=== PATIENT | female | born 1955 | race Caucasian/White ===

== ENCOUNTER 2018-12-18 06:14 | Emergency (ER) | payer OTHER ==
[~2018-12-18] VITALS: Ht 154.9 cm; Wt 90.5 kg
[2018-12-18 06:18] VITALS: BP 162/67; RESP 22; Ht 154.9 cm; Wt 90.5 kg
[2018-12-18] MEDS ORDERED: ALBUTEROL 0.083% (NEB) 2.5 MG/3 ML AMP HHN STA (07:05)
[2018-12-18] MEDS ORDERED: IPRATROPIUM (NEB) 0.5 MG/2.5 ML AMP HHN ONE (07:30)
[2018-12-18] MEDS ORDERED: DEXAMETHASONE 10 MG/ML 1 ML INJ IM ONE (07:30)
[2018-12-18] MEDS ORDERED: PRED20TA PO (08:18)
[2018-12-18] MEDS ORDERED: ALBU8.5H8 INH (08:18)
[2018-12-18] MEDS ORDERED: BENZ-6 PO (08:18)
[2018-12-18] MEDS ORDERED: D-ME473S2 PO (08:18)
[2018-12-18 08:36] VITALS: PULSE 80
--- NOTE | 2018-12-18 09:38 | ERD ---
ER Documentation Chief Complaint Chief Complaint COUGH X3-4DAYS; NOW SOB; HX OF ASTHMA HPI 63-year-old female presenting with cough x2 to 4 days. Patient has had some mild productive cough but no fevers. She has a history of asthma. She states that she has been using her inhaler with no alleviation of symptoms. Is been going last 4 days. Medical history of hypertension arthritis and prediabetes. NKDA. Surgical history denies. Social history denies. Up-to-date on vaccinations ROS All systems reviewed and are negative except as per history of present illness. Medications Home Meds Active Scripts Prednisone* (Prednisone*) 20 Mg Tab, 40 MG PO DAILY for 4 Days, TAB Prov:ATTILA HANCOCK PA-C 12/18/18 Albuterol Sulfate* (Proair HFA*) 8.5 Gm Hfa.aer.ad, 2 PUFF INH Q4, #1 INHALER Prov:ATTILA HANCOCK PA-C 12/18/18 Dextromethorphan Hb-Promethazine Hcl* (Promethazine DM* Syrup) 473 Ml Syrup, 5 ML PO Q6 PRN for COUGH, #100 ML Prov:ATTILA HANCOCK PA-C 12/18/18 Benzonatate* (Tessalon Perle*) 100 Mg Capsule, 100 MG PO Q8H PRN for COUGH, #30 CAP Prov:ATTILA HANCOCK PA-C 12/18/18 Allergies Allergies: Coded Allergies: No Known Allergy (Unverified , 08/05/13) PMhx/Soc History of Surgery: No Anesthesia Reaction: No Hx Neurological Disorder: No Hx Respiratory Disorders: Yes (asthma) Hx Cardiac Disorders: No Hx Psychiatric Problems: No Hx Miscellaneous Medical Probl: Yes (HTN, arthritis) Hx Alcohol Use: No Hx Substance Use: No Hx Tobacco Use: No Smoking Status: Never smoker FmHx Family History: No diabetes, No coronary disease, No other Physical Exam Vitals Vital Signs Date Temp Pulse Resp B/P (MAP) Pulse Ox O2 O2 Flow FiO2 Time Delivery Rate 12/18/18 80 99 Room Air 08:36 12/18/18 68 18 96 21 07:19 12/18/18 97.1 73 22 162/67 97 06:18 (98) Physical Exam GENERAL: The patient is well-appearing, well-nourished, in no acute distress HEENT: Atraumatic. Conjunctivae are pink. Pupils equal, round, and reactive to light. There is no scleral icterus. Tympanic membranes clear bilaterally. Oropharynx clear. NECK: C-spine is soft and supple. There is no meningismus. There is no cervical lymphadenopathy. CHEST: Clear to auscultation bilaterally. There are no rales, wheezes or rhonchi. HEART: Regular rate and rhythm. No murmurs, clicks, rubs or gallops. Results 24 hrs Current Medications Medications Dose Sig/Jonna Start Time Status Last (Trade) Ordered Route PRN Stop Time Admin Dose Reason Admin Albuterol 5 mg ONCE STAT 12/18/18 DC 12/18/18 (Proventil HHN 07:05 07:18 0.083% (Neb)) 12/18/18 07:07 Ipratropium 0.5 mg ONCE ONCE 12/18/18 DC 12/18/18 [place] HHN 07:30 07:18 (Atrovent 12/18/18 07:31 0.02% (Neb)) 10 mg ONCE ONCE 12/18/18 DC 12/18/18 Dexamethasone IM 07:30 07:21 (Decadron) 12/18/18 07:31 Procedures/MDM DIAGNOSTIC IMAGING REPORT Patient: ENIO MOON : 1955 Age: 63 Sex: F MR #: [id number] DOS: 12/18/18 0705 Ordering MD: YESSENIA HANCOCK PA-C Location: [facility] Room/Bed: PROCEDURE: XR Chest. CLINICAL INDICATION: Cough. TECHNIQUE: Chest, 1 view. COMPARISON: None. FINDINGS: The cardiomediastinal silhouette is normal in size. There is a 8 mm left apical lung nodule. No pleural effusion is seen. No definite pneumothorax is seen. No acute osseous abnormality. IMPRESSION: No radiographic evidence of an acute cardiopulmonary process. 8 mm left apical lung nodule. Further evaluation with chest CT is recommended. ER Course: Albuterol and Atrovent breathing treatment given ED. RT consult given. Decadron given. Symptoms improved. MDM: 63-year-old female presenting with cough and shortness of breath. There was no significant wheezing her auscultation however patient has a long history of asthma and states it feels like a asthma exacerbation. Wheezing is likely resolved prior to my evaluation given patient has been using albuterol at home. I have low suspicion for pneumonia or respiratory distress. Vitals are stable and exam is non-concerning. Patient's chest x-ray is within normal limits. I have low suspicion for respiratory distress or hypoxia. Patient is discharged with strict ER precautions and told to follow-up with primary care within 1 to 2 days for close evaluation. All questions answered at discharge Departure Diagnosis: Primary Impression: Cough Condition: Stable Patient Instructions: Cough, Chronic, Uncertain Cause, (Adult) Referrals: [facility] YOU HAVE RECEIVED A MEDICAL SCREENING EXAM AND THE RESULTS INDICATE THAT YOU DO NOT HAVE A CONDITION THAT REQUIRES URGENT TREATMENT IN THE EMERGENCY DEPARTMENT. FURTHER EVALUATION AND TREATMENT OF YOUR CONDITION CAN WAIT UNTIL YOU ARE SEEN IN YOUR DOCTORS OFFICE WITHIN THE NEXT 1-2 DAYS. IT IS YOUR RESPONSIBILITY TO MAKE AN APPOINTMENT FOR FOLOW-UP CARE. IF YOU HAVE A PRIMARY DOCTOR --you should call your primary doctor and schedule an appointment IF YOU DO NOT HAVE A PRIMARY DOCTOR YOU CAN CALL OUR PHYSICIAN REFERRAL HOTLINE AT IF YOU CAN NOT AFFORD TO SEE A PHYSICIAN YOU CAN CHOSE FROM THE FOLLOWING [facility] [address] [facility] [facility] [address] [facility] [facility] [address] [facility] [facility] [address] [facility]. [facility] [address] [facility]. [facility]. [address] Additional Instructions: FOLLOW UP WITH YOUR PRIMARY CARE PHYSICIAN TOMORROW.Return to this facility if you are not improving as expected. ATTILA HANCOCK PA-C December 18, 2018 09:38
== END 2018-12-18 08:37 | disposition home or self-care (01) ==
LOC: FTE 06:14
DX: R05 Cough (principal); J45.909 Unspecified asthma, uncomplicated; I10 Essential (primary) hypertension
CPT/HCPCS: 71045; 94664; 96372; J1100; Z7502; Z7610

== ENCOUNTER 2019-04-16 06:03 | Day surgery (SDC) | payer OTHER ==
[~2019-04-16] VITALS: Ht 147.3 cm; Wt 89.6 kg
[~2019-04-16 06:03] MED LIST: ALBU8.5H8 INH; AMLODIPINE; ASPIRIN X; BENZ-6 PO; D-ME473S2 PO; FLUOXETINE; HYDROCHLOROTHIAZIDE; LOSARTAN; METFORMIN; NAPROXEN PRN; PANTOPRAZOLE; PRED20TA PO; VENTOLIN
[2019-04-16 07:50] VITALS: Ht 147.3 cm; Wt 89.6 kg
[2019-04-16 07:53] VITALS: BP 179/80; PULSE 58; RESP 15
[2019-04-16] MEDS ORDERED: PROPOFOL 40 ML ONE (08:21)
[2019-04-16 08:47] VITALS: BP 173/72; PULSE 55; RESP 18
== END 2019-04-16 09:24 | disposition home or self-care (01) ==
LOC: GIL 06:03
PROVIDERS: ATTEND Internal Medicine Gastroenterology
DX: Z12.11 Encounter for screening for malignant neoplasm of colon (principal); K64.8 Other hemorrhoids; K64.4 Residual hemorrhoidal skin tags; D12.6 Benign neoplasm of colon, unspecified; I10 Essential (primary) hypertension; E11.9 Type 2 diabetes mellitus without complications; J45.909 Unspecified asthma, uncomplicated
CPT/HCPCS: 45380; 82962; Z7610; 88305